=== PATIENT | female | born 1990 | race Caucasian/White ===

== ENCOUNTER → 2024-09-26 16:19 | Outpatient (CLI) | payer OTHER, SELFPAY ==
--- NOTE | 2024-09-26 16:28 | DI.RAD.S_ITS ---
PROCEDURE: XR FOOT RT 2V INDICATIONS: Bilateral foot/heel pain TECHNIQUE: 2 views of the foot were acquired. COMPARISON: None. FINDINGS: Bones: No fractures or dislocations. No suspicious bony lesions. Soft tissues: No tibiotalar joint effusion. Achilles tendon appears normal. IMPRESSION: No acute bony abnormality. Dictated by: Jer Boucher M.D. on 09/26/2024 at 21:55 Approved by: Jer Boucher M.D. on 09/26/2024 at 21:56
--- NOTE | 2024-09-26 16:28 | DI.RAD.S_ITS ---
PROCEDURE: XR THORACIC SPINE 2V INDICATIONS: Back pain TECHNIQUE: 2 views of the thoracic spine were acquired. COMPARISON: None. FINDINGS: Bones: No fractures or dislocations. No suspicious bony lesions. 12 pairs of ribs are noted, and appear intact where visualized. Soft tissues: No paravertebral stripe thickening. IMPRESSION: 1. Dextroscoliosis angulation of 16.4 degree. 2. Mild degenerative disc disease, no focal osseous lesion seen. Dictated by: Jer Boucher M.D. on 09/26/2024 at 21:56 Approved by: Jer Boucher M.D. on 09/26/2024 at 21:58
--- NOTE | 2024-09-26 16:28 | DI.RAD.S_ITS ---
PROCEDURE: XR FOOT LT 2V INDICATIONS: Bilateral foot/heel pain TECHNIQUE: 2 views of the foot were acquired. COMPARISON: None. FINDINGS: Bones: No fractures or dislocations. No suspicious bony lesions. Soft tissues: No tibiotalar joint effusion. Achilles tendon appears normal. IMPRESSION: No acute bony abnormality. Dictated by: Jer Boucher M.D. on 09/26/2024 at 21:54 Approved by: Jer Boucher M.D. on 09/26/2024 at 21:55
[2024-09-26 17:48] LABS: Add Manual Diff / Slide Review NO; Basophils Absolute Auto 100 /uL (0-100); Basophils Percent Auto 0.7 % (0-2); Eosinophils Absolute Auto 300 /uL (0-450); Eosinophils Percent Auto 3.4 % (2-4); Hematocrit 39.1 % (36-46); Hemoglobin 13.4 g/dL (12.0-16.0); Lymphocytes Absolute Auto 2200 /uL (1100-4500); Lymphocytes Percent Auto 28.7 % (25-40); Mean Corpuscular HGB Conc 34.3 % (30-36); Mean Corpuscular Hemoglobin 29.7 PG (26-34); Mean Corpuscular Volume 86.5 fL (80-100); Monocytes Absolute Auto 400 /uL (0-900); Monocytes Percent Auto 5.4 % (3-14); Neutrophils Absolute Auto 4700 /uL (1500-7000); Neutrophils Percent Auto 61.8 % (50-75); Platelet Count 270 X10^3/uL (150-400); Red Blood Cell Count 4.52 X10^6/uL (4.0-5.2); Red Cell Distribution Width 14.7 % (11.6-14.8); White Blood Cell Count 7.7 X10^3/uL (4.5-11.0)
[2024-09-26 17:58] LABS: HEMOLYSIS < 15 (0-50); Iron 108 ug/dL (37-170)
[2024-09-26 18:01] LABS: Alanine Aminotransferase 21 IU/L (<35); Albumin 4.8 g/dL (3.5-5.0); Albumin Globulin Ratio 1.4 (1.0-2.8); Alkaline Phosphatase 65 U/L (38-126); Aspartate Aminotransferase 27 IU/L (14-36); BUN Creatinine Ratio 20.3 (6-22); Bilirubin Total 0.7 mg/dL (0.2-1.3); Blood Urea Nitrogen 16 mg/dL (7-17); Calcium 9.6 mg/dL (8.4-10.2); Carbon Dioxide 26 mmol/L (22-32); Chloride 103 mmol/L (98-107); Estimated Glomerular Filt Rate > 60 mL/min (>60); Globulin 3.5 g/dL (1.7-4.1); Glucose 95 mg/dL (70-99); HEMOLYSIS < 15 (0-50); Potassium 3.7 mmol/L (3.4-5.1); Sodium 141 mmol/L (137-145); Total Protein 8.3 g/dL (6.3-8.2)
[2024-09-26 18:10] LABS: Percent Iron Saturation 28 % (15-50); Total Iron Binding Capacity 383 ug/dL (265-497); Transferrin 336 mg/dL (206-381)
[2024-09-26 18:35] LABS: Ferritin 12 ng/mL (6-137)
== END ==
LOC: RAD 16:24
PROVIDERS: PCP Family Medicine; Referring Provider Family Medicine; Visit Provider Family Medicine
DX: M51.14 Intervertebral disc disorders with radiculopathy, thoracic region (principal); M41.9 Scoliosis, unspecified; M54.9 Dorsalgia, unspecified; N93.9 Abnormal uterine and vaginal bleeding, unspecified; F32.A Depression, unspecified; M79.671 Pain in right foot; M79.672 Pain in left foot; Z86.39 Personal history of other endocrine, nutritional and metabolic disease
CPT/HCPCS: 36415; 72070; 73620; 80053; 82728; 83540; 83550; 85025

== ENCOUNTER 2024-11-10 06:24 | Day surgery (SDC) | payer OTHER, SELFPAY ==
[2024-10-31 09:02] VITALS: BMI 29.2
[2024-11-10] VITALS (10 sets, daily range): BP systolic 94–119; BP diastolic 49–90; PULSE 68–92; RESP 12–27; TEMP 36.1–37; O2SAT 93–100; BMI 29.1
--- NOTE | 2024-11-10 | PATH_ITS ---
[facility] Accession Number: [id number] No. of containers..01 Tissue . 01 Material submitted: . uterus - UTERUS . 01 Diagnosis: UTERUS, SUPRACERVICAL HYSTERECTOMY: Uterine weight: 112 grams. Secretory phase endometrium; negative for atypia, hyperplasia, or malignancy. Benign small intramural leiomyoma, 0.4 cm in diameter. No adenomyosis present on electroplating sales representative sections. MRV 11/12/2024 1721 Local . 01 Electronically signed: . Gallo Steiner MD, Pathologist NPI- [id number] . 01 Gross description: . Received in formalin with two identifiers and uterus, is a fragmented uterus weighing 112 grams and aggregating to 11.8 x 11.1 x 5.4 cm. No cervix or adnexa are identified. The serosa is kaba and smooth with no lesions identified. The presumed endometrium is kaba and velvety averaging 0.3 cm thick. The myometrium is kaba and trabecular with a single well-circumscribed white whorled nodule 0.4 cm in greatest dimension. No additional lesions are identified. 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 A2: Nodule. A3: Serosa. ([id number]) /HUNTER 11/11/2024 0951 Local . 01 Pathologist provided ICD-10: N92.0 . 01 CPT . 141534 Specimen Comment: A courtesy copy of this report has been sent to [phone] Performed at: [address] [facility] [address], [place], [place] [id number] MD Tacho Melendez MD Phone: [phone]
--- NOTE | 2024-11-10 06:58 | PM.PREOP ---
Pre-operative Note Interval Note History & Physical reviewed/Exam performed by Physician: Yes Changes to H&P: No H&P completed within 30 days and has changed as indicated here:: 10/28/24
[2024-11-10] MEDS: LACTATED RINGERS 1,000 ML 21 ML IV ×2 (07:01→09:20)
[2024-11-10] MEDS: SCOPOLAMINE 1 PATCH TOP (07:34)
[2024-11-10] MEDS: CEFAZOLIN 2 GM/100 ML PREMIX 100 ML IV (07:55)
--- NOTE | 2024-11-10 08:25 | SUR.OPER ---
Lithotomy on padded OR bed. Nyssa Pad Positioner under torso. Head on pillow, arms padded and tucked at sides. Legs secured in padded yellow fins stirrups.
[2024-11-10] MEDS: BUPIVACAINE 0.5% W/ EPI (PF) 30 ML VIAL 60 ML INJ (08:37)
[2024-11-10] MEDS: ROPIVACAINE 0.2% PF 2 MG/ML 10ML AMP 20 ML INJ (08:59)
--- NOTE | 2024-11-10 09:56 | PM.GYNOP.1 ---
Operative Date/Time/Diagnoses Date of procedure: 11/10/24 Time of procedure: 09:56 Pre-op diagnosis: Adenomyosis Menorrhagia Dysmenorrhea Post-op diagnosis: same Procedure & Clinicians Procedure: Procedures Operation Date: 11/10/24 07:45 Actual Procedure Side Surgeon p Laparoscopic Supracervical Hysterectomy Анна Lopez MD Lysis of omental to anterior abdominal wall adhesions Indications: 34-year-old with adenomyosis, menorrhagia, and dysmenorrhea Surgeon: Анна Lopez Commercial Finance Manager: Evangelina Parekh Anesthesia Type: General and Local Operative Notes Findings: 10 week size anteverted uterus Fallopian tubes previously removed Omental to anterior abdominal wall adhesions Normal ovaries Normal liver Normal appendix Closure Type: primary Specimen(s): uterus Applied: none Estimated blood loss (mL): 50 Blood products transfused: none Procedure in detail: The patient was taken to the operating room where she was placed in the dorsal supine position. After adequate general endotracheal anesthesia was achieved, she was placed in the dorsal lithotomy position, and prepped and draped in the usual sterile fashion. A timeout was performed. A bivalve speculum was placed into the vagina and the anterior lip of the cervix grasped with a single-tooth tenaculum. The cervical os was sequentially dilated until the ZUMI uterine manipulator could pass easily into the endometrial cavity. The single-tooth tenaculum was removed from the anterior lip of the cervix, and the bivalve speculum was removed from the vagina. A moistened sponge stick was placed into the vagina. Attention was then turned to the abdomen where 6 mL of half percent Marcaine with epinephrine were injected in the umbilical fold. A 5 mm incision was made. The Verees needle was placed into the peritoneal cavity, and its placement confirmed by aspiration and drop test. The Verees needle was removed. A 5 mm trocar was placed without difficulty under direct visualization. 2 other incisions were made 4 cm lateral to the umbilicus after 5 mL of half percent Marcaine with epinephrine were injected. These were 5 mm incisions. Two 5 mm trocars were placed under direct visualization and the balloon inflated. The right cornua of the uterus was grasped with an atraumatic grasper. The utero-ovarian ligaments were cauterized and cut with a power seal. The round ligament and broad ligament was cauterized and cut with the power seal. Hemostasis was achieved. There were some adhesions between the bladder and the uterus. The bladder flap was created using the Powerseal who with cautery and cut prison across. The uterine arteries on the right side were extensively cauterized with the power seal. All of this was repeated on the left side. The remainder of the bladder flap was created using the powerseal, and the bladder taken down off the lower uterine segment and cervix. Using the Linaloop, the cervix was amputated from the uterus 2 cm above the uterosacral ligaments, after the ZUMI uterine manipulator was removed from the uterus. There was a small amount of bleeding noted from the posterior edge of the cervix, and this was cauterized for hemostasis. The endocervical canal was extensively cauterized with the spatula cautery. The right cervical branch of the uterine artery was cauterized with a power seal. 6 mL of half percent Marcaine with epinephrine were injected above the pubic symphysis. A 12 mm trocar was placed under direct visualization. An Endobag was placed through the suprapubic trocar and the uterus placed into the Endobag. The trocar was removed. The edges of the bag were brought up through the skin. The uterus was grasped with a Vandana. The uterus was hand morcellated in approximately 25 pieces. The Endobag was removed from the peritoneal cavity. The fascia was closed on the suprapubic incision using 0 Vicryl in a running fashion. Two simple interrupted sutures with 3-0 Vicryl were placed to reapproximate the subcutaneous layer. The abdomen was re-insufflated with carbon dioxide gas. The pelvis was copiously irrigated with warm normal saline. There was a small amount of bleeding noted and this was cauterized with the spatula cautery. The instruments were removed from the abdomen. The CO2 was allowed to escape. All of the incisions were closed with 4-0 Monocryl in a subcuticular fashion. The moistened sponge stick was removed from the vagina. Sponge, lap, and instrument counts were correct x-2. The patient tolerated the procedure well, was taken to PACU in stable condition. Post-operative Condition: stable Disposition: PACU Plan for aftercare: Home after recovery
[2024-11-10] MEDS: fentaNYL 100 MCG/2 ML INJ IV ×2 (10:09→10:14)
[2024-11-10] MEDS: HYDROMORPHONE 1 MG INJ IV ×2 (10:20→10:26)
--- NOTE | 2024-11-10 10:21 | SUR.PHASEI ---
Dilaudid given per DALILA Fermin. Will repeat the dose per SAMPLER TESTER.
[2024-11-10] MEDS: OXYCODONE IR 5 MG TABLET PO (11:03)
[2024-11-10] MEDS: ONDANSETRON 4 MG/2 ML INJ IV (11:03)
== END 2024-11-10 11:36 | disposition home or self-care (01) ==
PROVIDERS: PCP Family Medicine; Referring Provider Obstetrics & Gynecology; Visit Provider Obstetrics & Gynecology
PROC: 0UT94ZL Resection of Uterus, Supracervical, Percutaneous Endoscopic Approach (ICD-10-PCS; CPT 58541; principal; 2024-11-10 07:45)
DX: N92.0 Excessive and frequent menstruation with regular cycle (principal); N80.03 Adenomyosis of the uterus; N73.6 Female pelvic peritoneal adhesions (postinfective); D25.1 Intramural leiomyoma of uterus; N94.6 Dysmenorrhea, unspecified; F41.9 Anxiety disorder, unspecified; F32.A Depression, unspecified; E66.09 Other obesity due to excess calories; Z68.29 Body mass index [BMI] 29.0-29.9, adult
CPT/HCPCS: 58541; 81025; J0690; J1100; J1171; J1885; J2250; J2405; J2704; J2795; J3010; J3475; J3490

== ENCOUNTER 2024-12-13 15:51 | Emergency (ER) | payer OTHER, SELFPAY ==
[2024-12-13 16:01] VITALS: BP 139/70; PULSE 76; RESP 17; TEMP 36.9; O2SAT 99; BMI 30.1
[2024-12-13 16:27] LABS: Add Manual Diff / Slide Review NO; Hematocrit 37.9 % (36-46); Hemoglobin 13.1 g/dL (12.0-16.0); Lymphocytes Absolute Auto 1700 /uL (1100-4500); Mean Corpuscular HGB Conc 34.6 % (30-36); Mean Corpuscular Hemoglobin 29.9 PG (26-34); Mean Corpuscular Volume 86.3 fL (80-100); Platelet Count 232 X10^3/uL (150-400)
[2024-12-13 16:33] LABS: Alanine Aminotransferase 17 IU/L (<35); Albumin 4.6 g/dL (3.5-5.0); Albumin Globulin Ratio 1.3 (1.0-2.8); Alkaline Phosphatase 62 U/L (38-126); Blood Urea Nitrogen 15 mg/dL (7-17); Calcium 8.8 mg/dL (8.4-10.2); Carbon Dioxide 24 mmol/L (22-32); Chloride 105 mmol/L (98-107); Estimated Glomerular Filt Rate > 60 mL/min (>60); Globulin 3.5 g/dL (1.7-4.1); Glucose 97 mg/dL (70-99); HEMOLYSIS 26 (0-50); Potassium 3.7 mmol/L (3.4-5.1); Sodium 137 mmol/L (137-145); Total Protein 8.1 g/dL (6.3-8.2)
[2024-12-13 17:29] VITALS: BP 143/79; PULSE 81; O2SAT 99
[2024-12-13 17:30] VITALS: PULSE 68; O2SAT 100
--- NOTE | 2024-12-13 17:41 | ED_ITS ---
HPI - Female Genitourinary <Alcon Luu MD - Last Filed: 12/14/24 07:14> General Chief complaint: Vaginal Bleeding Stated complaint: cramping lower abd ,bleeding uro gential female Time Seen by Provider: 12/13/24 17:31 History of Present Illness HPI Narrative: 34-year-old female who just had a full hysterectomy on November 10, 2024. Patient had no postop bleeding but yesterday started with some vaginal spotting that became worse overnight to the point of need to come in to the ER this a.m.. Patient denies any dysuria but does have some urine urgency. She does complain of some mild left sided pelvic pain. No rebound no guarding. No other GI symptoms. No other symptoms noted. Related Data Home Medications ?Medication ?Instructions ?Recorded ?Confirmed ibuprofen 800 mg tablet 800 mg PO 3XD 11/10/2411/28 Previous Rx's ?Medication ?Instructions ?Recorded fluoxetine 10 mg capsule 10 mg PO DAILY #30 caps 11/11 01/05 fluoxetine 20 mg capsule 20 mg PO DAILY #30 caps 11/11 01/05 Allergies Allergy/AdvReac Type Severity Reaction Status Date / Time shellfish derived Allergy ITCHING Verified 11/28/24 10:59 Review of Systems <Alcon Luu MD - Last Filed: 12/14/24 07:14> Review of Systems ROS Unobtainable: All systems reviewed & are unremarkable except as noted in HPI and below Patient History <Alcon Luu MD - Last Filed: 12/14/24 07:14> Medical History (Updated 12/13/24 @ 21:08 by John Carmona MD) Depression (~2021) Anxiety (~2021) Foot pain (~2019) Anemia (~2015) Painful menstrual periods (~1998) Herpes (~1999) Heavy menstrual period (~1998) Surgical History (Updated 12/13/24 @ 21:08 by John Carmona MD) History of hysterectomy History of salpingectomy Anesthesia History of section H/O breast implant (~02/2010) History of cholecystectomy (~10/2008) Family History (Updated 09/09/24 @ 19:31 by Jasmyne Casanova) Father Hypertension Hyperlipidemia Mother Diabetes mellitus Grandfather Diabetes mellitus Grandmother History of heart disease Exam <Alcon Luu MD - Last Filed: 12/14/24 07:14> Narrative Exam Narrative: General: Healthy appearing, in no acute distress. Able to give a complete and coherent history. Well-nourished well-developed HEENT: Moist mucous membranes, normal sclera with reactive pupils, Neck: No JVD, supple Respiratory: Lungs are clear to auscultation, no wheezing no rales no rhonchi. Full and symmetrical air movement Cardiac: Regular rate and rhythm no murmurs no bruits Abdomen: Soft, mildly tender to palpation left lower quadrant, no rebound or guarding, no flank pain Skin: Warm and dry, no rashes Neurologic: Grossly neurologically intact with no obvious asymmetries or abnormalities Extremities: No trauma, well perfused Psych: Cooperative, appropriate insight and affect Initial Vital Signs Initial Vital Signs: Vital Signs Temperature 98.5 F 12/13/24 16:01 Pulse Rate 76 12/13/24 16:01 Respiratory Rate 17 12/13/24 16:01 Blood Pressure 139/70 12/13/24 16:01 Pulse Oximetry 99 12/13/24 16:01 Oxygen Delivery Method Room Air 12/13/24 16:01 <John Carmona MD - Last Filed: 12/14/24 02:52> Initial Vital Signs Initial Vital Signs: Vital Signs Temperature 98.5 F 12/13/24 16:01 Pulse Rate 76 12/13/24 16:01 Respiratory Rate 17 12/13/24 16:01 Blood Pressure 139/70 12/13/24 16:01 Pulse Oximetry 99 12/13/24 16:01 Oxygen Delivery Method Room Air 12/13/24 16:01 Course <Alcon Luu MD - Last Filed: 12/14/24 07:14> Course Course Narrative: Patient's UA did not show a UTI picture and so will order a pelvic ultrasound at this time. Orders Ordered: Discontinued Medications Ketorolac Tromethamine (Ketorolac 30 Mg/Ml Vial) 15 mg IV NOW ONE Stop: 12/13/24 20:47 Last Admin: 12/13/24 20:52 Dose: 15 mg Documented By: BEKA Reevaluation(s) Reevaluation #1: Patient is signed out to next ED doc Dr. carmona who will f/up on us results Vital Signs Vital signs: Vital Signs - 8 hr 12/13/24 18:54 12/13/24 18:54 12/13/24 20:43 Pulse Rate Respiratory Rate Blood Pressure 125/72 113/72 Pulse Oximetry 98 Oxygen Delivery Method 12/13/24 20:43 Pulse Rate 70 Respiratory Rate 16 Blood Pressure Pulse Oximetry 98 Oxygen Delivery Method Room Air <John Carmona MD - Last Filed: 12/14/24 02:52> Orders Ordered: Discontinued Medications Ketorolac Tromethamine (Ketorolac 30 Mg/Ml Vial) 15 mg IV NOW ONE Stop: 12/13/24 20:47 Last Admin: 12/13/24 20:52 Dose: 15 mg Documented By: LS Vital Signs Vital signs: Vital Signs - 8 hr 12/13/24 18:54 12/13/24 18:54 12/13/24 20:43 Pulse Rate Respiratory Rate Blood Pressure 125/72 113/72 Pulse Oximetry 98 Oxygen Delivery Method 12/13/24 20:43 Pulse Rate 70 Respiratory Rate 16 Blood Pressure Pulse Oximetry 98 Oxygen Delivery Method Room Air MDM - Female Genitourinary <Alcon Luu MD - Last Filed: 12/14/24 07:14> Lab Data 12/13/24 16:10 12/13/24 16:10 Labs: Lab Results 12/13/24 12/13/24 Range/Units 16:10 17:28 WBC 6.4 (4.5-11.0) X10^3/uL RBC 4.39 (4.0-5.2) X10^6/uL Hgb 13.1 (12.0-16.0) g/dL Hct 37.9 (36-46) % MCV 86.3 (80-100) fL MCH 29.9 (26-34) PG MCHC 34.6 (30-36) % RDW 13.5 (11.6-14.8) % Plt Count 232 (150-400) X10^3/uL Neut % (Auto) 59.8 (50-75) % Lymph % (Auto) 25.9 (25-40) % Ashe % (Auto) 6.7 (3-14) % Eos % (Auto) 6.9 H (2-4) % Baso % (Auto) 0.7 (0-2) % Neut # (Auto) 3800 (2105-3309) /uL Lymph # (Auto) 1700 (2572-1768) /uL Ashe # (Auto) 400 (0-900) /uL Eos # (Auto) 400 (0-450) /uL Baso # (Auto) 0 (0-100) /uL Sodium 137 (137-145) mmol/L Potassium 3.7 (3.4-5.1) mmol/L Chloride 105 (98-107) mmol/L Carbon Dioxide 24 (22-32) mmol/L BUN 15 (7-17) mg/dL Creatinine 0.80 (0.52-1.04) mg/dL Estimated GFR > 60 (>60) mL/min BUN/Creatinine Ratio 18.8 (6-22) Glucose 97 (70-99) mg/dL Calcium 8.8 (8.4-10.2) mg/dL Total Bilirubin 0.7 (0.2-1.3) mg/dL AST 26 (14-36) IU/L ALT 17 (<35) IU/L Alkaline Phosphatase 62 (38-126) U/L Total Protein 8.1 (6.3-8.2) g/dL Albumin 4.6 (3.5-5.0) g/dL Globulin 3.5 (1.7-4.1) g/dL Albumin/Globulin Ratio 1.3 (1.0-2.8) Urine RBC 5-10/hpf H (0-5/HPF) Urine WBC 0-1/hpf (0-5/HPF) Ur Squamous Epith Cells 5-10 /hpf H (0-5/HPF) Urine Bacteria Moderate (10-30) H (None) Urine Mucus 3+ H (Negative) Ur Culture Indicated? Cult not indicated Vol Urine Centrifuged 10ml (spun) Point of Care Testing Test Results Negative Urine Dip Bedside Urine Glucose Negative Bedside Urine Bilirubin - Negative Bedside Urine Ketone - Negative Urine Specific [place] 1.025 Bedside Urine Occult Blood +++ Bedside Urine pH 6.0 Bedside Urine Protein +/- 15 Bedside Urine Urobilinogen - Negative Bedside Urine Nitrite - Negative Bedside Urine Leukocytes - Negative Esterase <John Carmona MD - Last Filed: 12/14/24 02:52> Lab Data Attestation: I reviewed the patient's lab results. Lab results narrative: White blood cell count 6400, hemoglobin 13.1, platelets adequate. Glucose 97. Normal renal function, serum CO2, electrolytes. Liver functions normal. Urinalysis contaminated. Labs: Lab Results 12/13/24 12/13/24 Range/Units 16:10 17:28 WBC 6.4 (4.5-11.0) X10^3/uL RBC 4.39 (4.0-5.2) X10^6/uL Hgb 13.1 (12.0-16.0) g/dL Hct 37.9 (36-46) % MCV 86.3 (80-100) fL MCH 29.9 (26-34) PG MCHC 34.6 (30-36) % RDW 13.5 (11.6-14.8) % Plt Count 232 (150-400) X10^3/uL Neut % (Auto) 59.8 (50-75) % Lymph % (Auto) 25.9 (25-40) % Ashe % (Auto) 6.7 (3-14) % Eos % (Auto) 6.9 H (2-4) % Baso % (Auto) 0.7 (0-2) % Neut # (Auto) 3800 (6710-2290) /uL Lymph # (Auto) 1700 (1399-2429) /uL Ashe # (Auto) 400 (0-900) /uL Eos # (Auto) 400 (0-450) /uL Baso # (Auto) 0 (0-100) /uL Sodium 137 (137-145) mmol/L Potassium 3.7 (3.4-5.1) mmol/L Chloride 105 (98-107) mmol/L Carbon Dioxide 24 (22-32) mmol/L BUN 15 (7-17) mg/dL Creatinine 0.80 (0.52-1.04) mg/dL Estimated GFR > 60 (>60) mL/min BUN/Creatinine Ratio 18.8 (6-22) Glucose 97 (70-99) mg/dL Calcium 8.8 (8.4-10.2) mg/dL Total Bilirubin 0.7 (0.2-1.3) mg/dL AST 26 (14-36) IU/L ALT 17 (<35) IU/L Alkaline Phosphatase 62 (38-126) U/L Total Protein 8.1 (6.3-8.2) g/dL Albumin 4.6 (3.5-5.0) g/dL Globulin 3.5 (1.7-4.1) g/dL Albumin/Globulin Ratio 1.3 (1.0-2.8) Urine RBC 5-10/hpf H (0-5/HPF) Urine WBC 0-1/hpf (0-5/HPF) Ur Squamous Epith Cells 5-10 /hpf H (0-5/HPF) Urine Bacteria Moderate (10-30) H (None) Urine Mucus 3+ H (Negative) Ur Culture Indicated? Cult not indicated Vol Urine Centrifuged 10ml (spun) Point of Care Testing Test Results Negative Urine Dip Bedside Urine Glucose Negative Bedside Urine Bilirubin - Negative Bedside Urine Ketone - Negative Urine Specific [place] 1.025 Bedside Urine Occult Blood +++ Bedside Urine pH 6.0 Bedside Urine Protein +/- 15 Bedside Urine Urobilinogen - Negative Bedside Urine Nitrite - Negative Bedside Urine Leukocytes - Negative Esterase Imaging Data Ultrasound pelvis.: Radiologist's Impression: [address] [address] Ultrasound Report Signed Patient: Kaia Reyes MR#: [id number] : 1990 Acct:[id number] Age/Sex: 34 / F Date of Service: 12/13/24 Loc: ED Accession Number: [id number] Procedure: US pelvic complete Ordering Provider: Alcon Luu MD PROCEDURE: US PELVIC COMPLETE INDICATIONS: pelvic pain TECHNIQUE: Real-time scanning was performed of the pelvic organs, with image documentation. Additional endovaginal scanning was necessary due to incomplete visualization of the adnexal and endometrial structures by transabdominal scanning. COMPARISON: None. FINDINGS: Uterus: Uterus is surgically absent. No abnormality is seen in vaginal cuff region. Nabothian cysts are noted in endocervical canal. Ovaries: The right ovary measures 3.6 x 1.7 x 2.4 cm, with a calculated ovarian volume of 7.6 cc. The left ovary measures 2.5 x 2.2 x 1.9 cm, with a calculated ovarian volume of 5.4 cc. Simple appearing right renal cysts are seen measures up to 1.5 x 1.0 x 1.2 cm in size. Less than 12 follicles can be seen in each ovary. No adnexal masses are seen. Other: No pathologic free abdominal or pelvic fluid. IMPRESSION: Simple appearing cysts seen in right ovary. No solid appearing ovarian lesion. No evidence of ovarian torsion. Prior hysterectomy. No abnormality is seen in vaginal cuff region. We strive to produce accurate, complete, and clear reports of imaging services. To assist us in improving patient care, this report was composed using standard report templates and voice recognition software. Therefore, it may contain abnormal punctuation, insertions and/or omissions. Occasional wrong-word or sound-alike substitutions may occur. Though we review the report and make efforts to correct it, we do recommend that the report be read carefully in proper context to recognize any text inaccuracies. Dictated by: Abdulaziz Garcia M.D. on 12/13/2024 at 19:05 Approved by: Abdulaziz Garcia M.D. on 12/13/2024 at 19:06 [facility] Narrative Medical decision making narrative: 12/13/24Tomeka Thompson. Sign-out from Dr Luu, see his initial history and physical exam findings. Pelvic ultrasound pending. 34-year-old female with vaginal bleeding status post laparoscopic hysterectomy one month ago by Dr. Lopez. Afebrile, SIRS screen negative. Transient abdominal exam by me, no tenderness, port sites without obvious infection well-healed. Assumed care. Lab data: White blood cell count 6400, hemoglobin 13.1, platelets adequate. Glucose 97. Normal renal function, serum CO2, electrolytes. Liver functions normal. Urinalysis contaminated. Ultrasound showed no acute changes, see radiology report. 2100, case discussed with on-call gynecology Dr. Mchugh, reviewed op note, patient last month had laparoscopic supracervical hysterectomy, does not feel that the patient needs additional imaging such as CT abdomen and pelvis imaging for today. Recommendations relayed to patient. Follow up with her surgeon Dr. Lopez advised for Sunday, and/or with Dr. Mchugh on Sunday. Pelvic rest advised for now. Return precautions discussed. Home with family. Discharge Plan Departure Patient Disposition: Home Clinical Impression: Vaginal bleeding, History of hysterectomy, supracervical Activity Restrictions/Additional Instructions: Status post laparoscopic supracervical hysterectomy 1 month ago, now with more recent vaginal bleeding, hemoglobin level normal, no significant tenderness on transabdominal examination at this time, screening labs unremarkable. Ultrasound of the pelvis showed no acute changes within the pelvis. Case was discussed with on-call gynecology Dr. Mchugh, who did not feel that CT abdomen and pelvis imaging was needed at this time. Recheck symptoms with your regular surgeon Dr. Lopez on Sunday, and/or with Dr. Mchugh on Sunday. Return earlier to this/nearest emergency department for any change worsening symptoms or any concerns prior. Pelvic rest for now on over the weekend until recheck on Sunday. Prescriptions: No Action fluoxetine 20 mg capsule 20 mg PO DAILY Qty: 30 1RF fluoxetine 10 mg capsule 10 mg PO DAILY Qty: 30 1RF Rx Instructions: take with 20 mg capsules ibuprofen 800 mg tablet 800 mg PO 3XD Referrals: Анна Lopez MD [Physician, CORE OVEN TENDER] Honey Guevara MD [Primary Care Provider, Family Practice] Guillermina Mchugh DO [Physician, CORE OVEN TENDER] Stand Alone Forms: Patient Portal/API
--- NOTE | 2024-12-13 17:49 | DI.US.S_ITS ---
PROCEDURE: US PELVIC COMPLETE INDICATIONS: pelvic pain TECHNIQUE: Real-time scanning was performed of the pelvic organs, with image documentation. Additional endovaginal scanning was necessary due to incomplete visualization of the adnexal and endometrial structures by transabdominal scanning. COMPARISON: None. FINDINGS: Uterus: Uterus is surgically absent. No abnormality is seen in vaginal cuff region. Nabothian cysts are noted in endocervical canal. Ovaries: The right ovary measures 3.6 x 1.7 x 2.4 cm, with a calculated ovarian volume of 7.6 cc. The left ovary measures 2.5 x 2.2 x 1.9 cm, with a calculated ovarian volume of 5.4 cc. Simple appearing right renal cysts are seen measures up to 1.5 x 1.0 x 1.2 cm in size. Less than 12 follicles can be seen in each ovary. No adnexal masses are seen. Other: No pathologic free abdominal or pelvic fluid. IMPRESSION: Simple appearing cysts seen in right ovary. No solid appearing ovarian lesion. No evidence of ovarian torsion. Prior hysterectomy. No abnormality is seen in vaginal cuff region. We strive to produce accurate, complete, and clear reports of imaging services. To assist us in improving patient care, this report was composed using standard report templates and voice recognition software. Therefore, it may contain abnormal punctuation, insertions and/or omissions. Occasional wrong-word or sound-alike substitutions may occur. Though we review the report and make efforts to correct it, we do recommend that the report be read carefully in proper context to recognize any text inaccuracies. Dictated by: Abdulaziz Garcia M.D. on 12/13/2024 at 19:05 Approved by: Abdulaziz Garcia M.D. on 12/13/2024 at 19:06
[2024-12-13 18:00] VITALS: PULSE 68; O2SAT 99
[2024-12-13 18:02] LABS: Culture Indicated Urine Cult Not Indicated
[2024-12-13 18:54] VITALS: BP 125/72; O2SAT 98
[2024-12-13 20:43] VITALS: BP 113/72; PULSE 70; RESP 16; O2SAT 98
[2024-12-13] MEDS: KETOROLAC 30 MG/ML VIAL 15 MG IV (20:52)
== END 2024-12-13 21:11 | disposition home or self-care (01) ==
PROVIDERS: Family Medicine; Emergency Provider Emergency Medicine; PCP Family Medicine
DX: N93.9 Abnormal uterine and vaginal bleeding, unspecified (principal); Z90.711 Acquired absence of uterus with remaining cervical stump
CPT/HCPCS: 36415; 76856; 80053; 81003; 81015; 81025; 85025; 96374; 99284; J1885